=== PATIENT | male | born 1965 | race Two or more races ===

== ENCOUNTER 2016-11-15 10:37 | Inpatient (IN) | payer MEDICAID ==
[~2016-11-15] VITALS: Ht 170.2 cm; Wt 84.4 kg
--- NOTE | 2016-11-15 10:37 | NUR ---
JERAMY RA88 FROM [place]. PER EMS REPORT, PT WAS "SEIZING ON THE SIDEWALK." VERSED 5mg IM GIVEN BY [employer] STAGE TEACHER
--- NOTE | 2016-11-15 10:53 | NUR ---
PT TAKEN TO CT
[2016-11-15 10:54] LABS: EOSINOPHILS # (AUTO) 0.1 /CMM (0.0-0.7); MONOCYTES % (AUTO) 7.1 % (2.0-12.0)
[2016-11-15 10:56] LABS: BASOPHILS # (AUTO) 0.1 /CMM (0.0-0.2); BASOPHILS % (AUTO) 0.7 % (0.0-2.0); EOSINOPHILS % (AUTO) 0.8 % (0.0-6.0); HEMATOCRIT 47 % (39-51); HEMOGLOBIN 15.5 g/dL (13.5-17.5); LYMPHOCYTES # (AUTO) 1.8 /CMM (0.8-4.8); LYMPHOCYTES % (AUTO) 16.8 % (20.0-44.0); MEAN CORPUSCULAR HEMOGLOBIN 32 PG (26.0-33.0); MEAN CORPUSCULAR HGB CONC 33 g/dl (31.0-36.0); MEAN CORPUSCULAR VOLUME 97 fL (80-96); MONOCYTES # (AUTO) 0.8 /CMM (0.1-1.30); NEUTROPHILS # (AUTO) 8.1 /CMM (1.8-8.9); NEUTROPHILS % (AUTO) 74.6 % (43.0-81.0); PLATELET COUNT (AUTO) 216 /CMM (150-450); RDW COEFFICIENT OF VARIATION 12.5 (11.5-15.0); WHITE BLOOD COUNT (AUTO) 10.9 K/uL (4.3-11.0)
[2016-11-15 11:05] LABS: CALCIUM, SERUM 8.2 mg/dL (8.5-10.1); CARBON DIOXIDE 13 mmol/L (21-32); CHLORIDE 101 mmol/L (98-107); CREATININE 1.8 mg/dL (0.6-1.3); GLUCOSE 310 mg/dL (74-106); POTASSIUM 3.8 mmol/L (3.5-5.1); SODIUM SERUM 138 mmol/L (136-145); UREA NITROGEN, BLOOD 12 mg/dL (7-18)
[2016-11-15 11:19] LABS: ACETAMINOPHEN 0 ug/ml (10-30); ALANINE AMINOTRANSFERASE 19 U/L (12-78); ALBUMIN 3.7 g/dL (3.4-5.0); ALCOHOL, BLOOD < 3 mg/dL (0-0); ALKALINE PHOSPHATASE 93 U/L (46-116); ASPARTATE AMINOTRANSFERASE 21 U/L (15-37); BILIRUBIN,DIRECT 0.1 mg/dL (0.0-0.2); BILIRUBIN,TOTAL 0.4 mg/dL (0.2-1.0); TOTAL PROTEIN, SERUM 7.4 g/dL (6.4-8.2)
--- NOTE | 2016-11-15 12:42 | NUR ---
PAGED DR CEDILLO FOR PANEL ADMISSION
--- NOTE | 2016-11-15 12:52 | NUR ---
GAVE REPORT TO CHANDNI RN MAICOL 115-2 ADMITTING DX SEIZURE, ALTERED PROLONGED POST-ICTAL TRASNFER VIA ACLS PROTOCOL
--- NOTE | 2016-11-15 13:04 | NUR ---
URINE SAMPLE COLLECTED SENT TO LAB
[2016-11-15 13:45] LABS: BILIRUBIN,URINE Negative (NEGATIVE); BLOOD, URINE Trace-intact Ery/uL (NEGATIVE); COLOR,URINE Yellow (YELLOW); KETONES,URINE Negative (NEGATIVE); LEUKOCYTE ESTERASE ,URINE Trace (NEGATIVE); NITRITE, URINE Negative (NEGATIVE); PROTEIN,URINE Negative (NEGATIVE); UGLUCOSE Negative (NEGATIVE); UROBILINOGEN,URINE 0.2 EU/dL (0.2)
[2016-11-15 13:50] LABS: BACTERIA,URINE Few /HPF (None Seen); RBC,URINE 0-2 /HPF (0-2); SQUAMOUS EPITHELIAL CELL,UR Few /HPF (None Seen); WBC,URINE 0-2 /HPF (0-3)
[2016-11-15 13:51] LABS: APPEARANCE,URINE CLOUDY (CLEAR); URINE AMORPHOUS URATE Moderate /HPF (None Seen)
--- NOTE | 2016-11-15 15:10 | NUR ---
RN INITIAL NOTE PATIENT RECEIVED VIA GURNEY FROM ER. PATIENT IS AGITATED AND RESTLESS. RESPIRATIONS ARE EVEN SATING WELL ON 15L NON REBREATHER MASK. SKIN IS WARM, DIAPHORETIC. BILATERAL SOFT WRIST RESTRAINTS ORDER OBTAINED. IV SITE NOT ADEQUATE. MIDLINE ORDER OBTAINED. VIETNAMESE SPEAKING. COMBATIVE AND WILL NOT COOPERATE. TELEGRAPHIC TYPEWRITER MECHANIC NOT ABLE TO CALM PATIENT. SAFETY PRECAUTIONS IMPLEMENTED. BED IN LOCKED LOW POSITION WITH TWO SIDE RAILS UP. ORDER FOR SITTER PLACED. WILL CONTINUE TO MONITOR CLOSELY.
--- NOTE | 2016-11-15 15:26 | NUR ---
PATIENT AGITATED PULLING OUT LINES,GETTING OUT OF BED WITH UNSTEADY GAIT,UNABLE TO FOLLOW COMMANDS,PLACED ON BILATERAL SOFT WRIST RESTRAINTS FOR SAFETY.
[2016-11-15 16:00] VITALS: BP 125/77
[2016-11-15 17:00] VITALS: BP 125/77
--- NOTE | 2016-11-15 18:01 | NUR ---
patient very agitated despite bilateral soft wrist restraint and prn ativan,pulled iv, made aware with order for sitter until pt. calm down.
[2016-11-15 20:00] VITALS: BP 144/85
--- NOTE | 2016-11-15 20:00 | NUR ---
received pt from day shift, alert, restless, combative, SR, on non rebreather, sat well, restraints on, sitter at the bedside, v/s stable, no pain, ativan given for agitation, v/s stable, no pain, pt turns and repositions by himself.
[2016-11-16] VITALS: BP 127/75
[2016-11-16 04:00] VITALS: BP 126/72
--- NOTE | 2016-11-16 04:18 | NUR ---
pt resting in the bed, SR, on non rebreather, sat well, v/s stable, no pain, pt cleaned and changed.
[2016-11-16 06:49] LABS: BASOPHILS % (AUTO) 0.2 % (0.0-2.0); HEMATOCRIT 45 % (39-51); HEMOGLOBIN 15.3 g/dL (13.5-17.5); LYMPHOCYTES # (AUTO) 0.8 /CMM (0.8-4.8); LYMPHOCYTES % (AUTO) 9.1 % (20.0-44.0); MEAN CORPUSCULAR HEMOGLOBIN 33 PG (26.0-33.0); MEAN CORPUSCULAR HGB CONC 34 g/dl (31.0-36.0); MEAN CORPUSCULAR VOLUME 96 fL (80-96); MONOCYTES # (AUTO) 0.8 /CMM (0.1-1.30); MONOCYTES % (AUTO) 9.2 % (2.0-12.0); NEUTROPHILS # (AUTO) 7.1 /CMM (1.8-8.9); NEUTROPHILS % (AUTO) 81.5 % (43.0-81.0); PLATELET COUNT (AUTO) 150 /CMM (150-450); RDW COEFFICIENT OF VARIATION 13.1 (11.5-15.0); RED BLOOD CELL COUNT(AUTO) 4.66 MIL/uL (4.5-6.0); WHITE BLOOD COUNT (AUTO) 8.7 K/uL (4.3-11.0)
[2016-11-16 07:26] LABS: CALCIUM, SERUM 7.8 mg/dL (8.5-10.1); CREATININE 0.9 mg/dL (0.6-1.3); MAGNESIUM 2.2 mg/dL (1.8-2.4); PHOSPHORUS 2.9 mg/dL (2.5-4.9); POTASSIUM 3.3 mmol/L (3.5-5.1)
[2016-11-16 08:00] VITALS: BP 122/73
--- NOTE | 2016-11-16 14:50 | NUR ---
Social service consult requested by MAICOLJoshua Vernon for homelessness and alcohol/ drug use. Pt. is a 50 year old male who was admitted to [facility] for Seizures. Pt. was found seizing on the sidewalk and was brought in by ambulance to [facility]. SW met with pt. bedside. SW is familiar with pt. from previous admission. Pt. is unable to provide any information as he is still altered. Pt. tested positive for cannaboids and Benzo's. Pt is on restraints at this time and has a sitter bedside. SW to assess pt. when he is more alert and oriented. Pt. is [place] speaking.
[2016-11-16 16:00] VITALS: BP 115/70
[2016-11-16 20:00] VITALS: BP 142/70
--- NOTE | 2016-11-17 04:13 | NUR ---
MS-1/WHOLESALE DIAMOND BROKER PT EXTREMELY AGITATED. VIOLENTLY THRASHING AROUND IN BED. PT SNAPPED OFF MIDLINE EXTENSION. NEW EXTENSION AND DRESSING PLACED BY HERMAN RN. PT VIOLENTLY TRYING TO KICK NURSING AND EXTRUDER OPERATOR HELPER STAFF DURING AM CARE. PT SCREAMING OBSCENITIES AT THE TOP OF HIS LUNGS. FULL BED BATH GIVEN ALL LINENS CHANGED. PT REPOSITIONED AND MEDICATED FOR COMFORT. SITTER AT BEDSIDE FOR PT SAFETY. WILL CONTINUE TO MONITOR CLOSELY.
[2016-11-17 04:17] VITALS: BP 136/90
--- NOTE | 2016-11-17 07:00 | NUR ---
MS RN NOTE: RECEIVED PT AWAKE IN BED YELLING. PT IS PORTUGUESE SPEAKING, A&OX2, DENIES PAIN. ON O2 3LPM VIA NC WITH NO SOB NOTED. ROSA MIDLINE WITH NS RUNNING AT 50CC/HR. RESTRAINTS NOTED. FC DRAINING TO GRAVITY WITH DARK YELLOW URINE. BED LOW, LOCKED WITH CALL LIGHT WITHIN REACH. 1:1 SITTER AT BEDSIDE FOR SAFETY. WILL CONT TO MONITOR.
[2016-11-17 07:07] LABS: BASOPHILS % (AUTO) 0.2 % (0.0-2.0); HEMATOCRIT 47 % (39-51); HEMOGLOBIN 16.2 g/dL (13.5-17.5); LYMPHOCYTES # (AUTO) 0.7 /CMM (0.8-4.8); LYMPHOCYTES % (AUTO) 10.6 % (20.0-44.0); MEAN CORPUSCULAR HEMOGLOBIN 33 PG (26.0-33.0); MEAN CORPUSCULAR HGB CONC 34 g/dl (31.0-36.0); MEAN CORPUSCULAR VOLUME 95 fL (80-96); MONOCYTES # (AUTO) 0.7 /CMM (0.1-1.30); MONOCYTES % (AUTO) 9.8 % (2.0-12.0); NEUTROPHILS # (AUTO) 5.3 /CMM (1.8-8.9); NEUTROPHILS % (AUTO) 79.4 % (43.0-81.0); PLATELET COUNT (AUTO) 145 /CMM (150-450); RED BLOOD CELL COUNT(AUTO) 4.98 MIL/uL (4.5-6.0); WHITE BLOOD COUNT (AUTO) 6.7 K/uL (4.3-11.0)
[2016-11-17 07:33] LABS: CALCIUM, SERUM 8.1 mg/dL (8.5-10.1); CREATININE 0.8 mg/dL (0.6-1.3); MAGNESIUM 2.1 mg/dL (1.8-2.4); PHOSPHORUS 2.3 mg/dL (2.5-4.9); POTASSIUM 3.3 mmol/L (3.5-5.1)
[2016-11-17 08:00] VITALS: BP 141/92
--- NOTE | 2016-11-17 14:35 | NUR ---
ROSE and family preservation caseworker Zachery met with pt. bedside to assess pt. Pt. is much more alert and oriented today. Pt. is still on restraints due to trying to get out of bed. Pt. has a sitter bedside. Pt. is New Zealander and Czech speaking. [place]. [place] [facility] [facility] [place] [employer]. Pt. 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 Pt. denies drinking alcohol but smokes Marijuana. Pt. toxicology was positive for cannaboids and benzo's. [facility] [employer]. Pt. will need bus tokens at time of discharge. Pt's RN to request bus tokens from nursing hide house supervisor at time of discharge. ROSE offered pt. senior care placement and resources, however pt. declined.
--- NOTE | 2016-11-17 15:30 | NUR ---
MS RN NOTE: PT REMOVED MIDLINE. CHARGE NURSE NOTIFIED. 1:1 SITTER AT BEDSIDE FOR SAFETY.
--- NOTE | 2016-11-17 15:45 | NUR ---
MS RN NOTE: PATIENT REFUSED NEW IV LINE. 1:1 SITTER AT BEDSIDE.
--- NOTE | 2016-11-17 17:42 | NUR ---
EMTS NOTE: PATIENT ACCIDENTLY SPILLED 1700 MED SODIUM CITRATE AND CITRIC ACID ORAL SOLUTION 15ML. OTHER DOSE REMOVED FROM OMNICELL. Addendum: 11/17/16 at 1854 by JUNE PICKETT RN WRONG PATIENT. DISREGARD NOTE.
--- NOTE | 2016-11-17 19:06 | NUR ---
MS RN NOTE: NO ACUTE CHANGES DURING SHIFT. PT REMAINED A&OX2, FRENCH SPEAKING, DENIES PAIN. ON 3LPM O2 VIA NC WITH NO SOB NOTED. FC DRAINING TO GRAVITY WITH URINE WITH BLOOD CLOTS. BED LOW, LOCKED WITH CALL LIGHT WITHIN REACH. 1:1 SITTER AT BEDSIDE FOR SAFETY. ORDERS CARRIED OUT. WILL ENDORSE TO UNDERCUTTER NURSE FOR [facility].
--- NOTE | 2016-11-17 19:30 | NUR ---
RN OPENING NOTES: PATIENT ON BED AWAKE ALOX1-2 WITH PERIODS OF CONFUSION. NOTED TO BE RESTLESS IN BED, SITTER AT BEDSIDE AT THIS TIME WITH BILATERAL WRIST RESTRAINTS PATIENT TENDS TO BE COMBATIVE. ON O2 THERAPY ON 3LPM, TOLERATED WELL NOT IN APPARENT DISTRESS. NO IV ACCESS AT THIS TIME, TO INSERT PERIPHERAL LINE. FC INTACT. TO A CLOSED SYSTEM. NOTED WITH ORANGE COLORED URINE WITH NOTED BLOOD CLOTS. FLUSHED FRANCO CATHETER, TO MONITOR URINE OUTPUT. SAFETY MEASURES ENSURED. SEIZURE AND FALL PRECAUTION ENSURED AT ALL TIMES. CONTINUOUSLY MONITORED PATIENT.
[2016-11-17 20:00] VITALS: BP 145/82
--- NOTE | 2016-11-18 07:01 | NUR ---
RN CLOSING NOTES: PATIENT REMAINED IN BED NOT IN APPARENT DISTRESS. WITH PERIODS OF RESTLESSNESS AND ANXIETY AND SCREAMING, BUT WAS ABLE TO SLEEP ABOUT 5 HOURS THROUGHOUT SHIFT. REMAINS WITH BILATERAL WRIST RESTRAINTS. SKIN CARE RENDERED. FC INTACT TO GRAVITY UO MEASURED NOTED TO BE BLOOD TINGED STILL. CONTINUOUSLY MONITORED. TO ENDORSE TO AM SHIFT RN.
--- NOTE | 2016-11-18 07:58 | NUR ---
RN/MS OPENING NOTES RECEIVED PATIENT AWAKE RESTING IN BED COMFORTABLY WITH EYES OPEN. PATIENT IS AOX1-2 WITH REPORTED PERIODS OF CONFUSION. SEIZURE PRECAUTIONS IN PLACE. PATIENT APPEARS TO BE IN NO DISTRESS AT THIS TIME. DENIES SOB. HEATHER PAIN. PATIENT HAS RIGHT HAND 20G THAT HAS BEEN DISLODGED. WILL REINSERT. PATIENT HAS 1:1 SITTER AT THE BED SIDE. PATIENT HAS RESTRAINTS IN PLACE D/T PATIENT HAVING EPISODES OF BEING COMBATIVE. PATIENT ON 2LPM SATURATING ADEQUATELY. BED LOCKED IN THE LOWEST POSITION WITH SIDERAILS UPX2. CALL LIGHT WITHIN REACH. WILL CONTINUE TO MONITOR, ASSESS AND EDUCATE PATIENT THROUGHOUT SHIFT.
[2016-11-18 08:00] VITALS: BP 124/84
[2016-11-18 08:11] LABS: BASOPHILS % (AUTO) 0.1 % (0.0-2.0); EOSINOPHILS % (AUTO) 0.1 % (0.0-6.0); HEMATOCRIT 48 % (39-51); HEMOGLOBIN 16.2 g/dL (13.5-17.5); LYMPHOCYTES # (AUTO) 0.9 /CMM (0.8-4.8); LYMPHOCYTES % (AUTO) 15.3 % (20.0-44.0); MEAN CORPUSCULAR HEMOGLOBIN 32 PG (26.0-33.0); MEAN CORPUSCULAR HGB CONC 34 g/dl (31.0-36.0); MEAN CORPUSCULAR VOLUME 95 fL (80-96); MONOCYTES # (AUTO) 0.6 /CMM (0.1-1.30); MONOCYTES % (AUTO) 10.8 % (2.0-12.0); NEUTROPHILS # (AUTO) 4.3 /CMM (1.8-8.9); NEUTROPHILS % (AUTO) 73.7 % (43.0-81.0); PLATELET COUNT (AUTO) 146 /CMM (150-450); RDW COEFFICIENT OF VARIATION 13.4 (11.5-15.0); RED BLOOD CELL COUNT(AUTO) 5.07 MIL/uL (4.5-6.0); WHITE BLOOD COUNT (AUTO) 5.8 K/uL (4.3-11.0)
[2016-11-18 08:43] LABS: CALCIUM, SERUM 8.2 mg/dL (8.5-10.1); CREATININE 0.7 mg/dL (0.6-1.3); MAGNESIUM 2.1 mg/dL (1.8-2.4); PHOSPHORUS 3.4 mg/dL (2.5-4.9); POTASSIUM 3.7 mmol/L (3.5-5.1)
--- NOTE | 2016-11-18 09:00 | NUR ---
PATIENT RELEASED FROM RESTRAINTS ,WITH SITTER AT BEDSIDE,FREQUENT REORIENTATION RENDERED,SCREAMS,YELLS AT TIME IN AMERICAN,WITH AMERICAN SPEAKING SITTER,REASSURED PATIENT THAT HE IS BEING TAKEN CARE OF FALL RISK PRECAUTION OBSERVED.
--- NOTE | 2016-11-18 10:45 | NUR ---
RN/MS NOTES PATIENT HAS EPISODES OF SCREAMING BUT IS REORIENTED FREQUENTLY. PATIENT IS COMFORTABLE AT THIS TIME. NEW LINE PLACED ON THE RIGHT HAND. 22G. 3 ATTEMPTS. PATIENT TOLERATED WELL. IV PATENT AND INTACT. PROPER INTERVENTIONS PLACED TO PREVENT PATIENT FROM REMOVING IV. NO S/S OF INFILTRATION. NS RUNNING AT 50 MLS/HR AT THIS TIME.
--- NOTE | 2016-11-18 11:00 | NUR ---
COMPLETED RESTRAINT, PATIENT OFF FROM RESTRAINT ABLE TO RELAY WITH PASHTO SITTER,GAVE PHONE NUMBER [phone] ,ABLE TO CONTACT BROTHER MOMO VILLASEÑOR ,PER BROTHER PATIENT IS HOMELESS BUT HE CAN PICK HIM UP ONCE DISCHARGE.
--- NOTE | 2016-11-18 11:19 | NUR ---
FREQUENT REORIENTATION DONE IN ENGLISH BY SITTER AT BEDSIDE.
--- NOTE | 2016-11-18 11:20 | NUR ---
RN NOTES NEW IV PUT INTO PLACE. 3 ATTEMPTS. PATIENT TOLERATED WELL. IV ACCES ON THE RIGHT HAND 22 G. IV PATENT AND INTACT. NO S/ SOF INFILTRATION. WILL CONTINUE TO MONITOR. PATIENT FREQUENTLY REORIENTED BY SITTER.
--- NOTE | 2016-11-18 12:22 | NUR ---
RN NOTES PER CORPORATE SALES MANAGER AMY, GIVE LIBRIUM EARLY.
--- NOTE | 2016-11-18 13:35 | NUR ---
RN NOTES PATIENT COMPLAINING OF BEING BORED AND SHOUTING ASKING FOR BROTHER. REORIENTED BY 1:1 SITTER. WILL CONTINUE TO ORIENT AND EDUCATE PATIENT THROUGHOUT SHIFT.
--- NOTE | 2016-11-18 13:36 | NUR ---
PATIENT C/O BACK PAIN PRN PAIN MEDS GIVEN PO.
--- NOTE | 2016-11-18 14:03 | NUR ---
RN NOTES D/C JOAN PER DR. CEDILLO. PATIENT AMBULATED WELL WITH WALKER. WILL REASSESS AND HAVE PATIENT WALK AGAIN WITHOUT WALKER. WILL REPORT TO CHARGE NURSE IF PATIENT UNSTEADY.
--- NOTE | 2016-11-18 14:04 | NUR ---
RN NOTE FRANCO D/C'D. BALLOON DEFLATED AND 7 ML OF NS REMOVED. PATIENT TOLERATED WELL. FRANCO BAG CONTAINS 300 MLS OF ALFREDO URINE.
--- NOTE | 2016-11-18 15:04 | NUR ---
RN NOTES PATIENT TO BE DISCHARGED WITH NO MEDS PER DR. CEDILLO.
--- NOTE | 2016-11-18 15:05 | NUR ---
RN CLOSING NOTES PATIENT DISCHARGED IN STABLE CONDITION. PATIENT AMBULATES WITH STEADY GAIT. PATIENT WAS PROVIDED WITH EXIT CARE. PATIENT BELONGINGS CHECKED AND DOCUMENTED. ALL EDUCATION MATERIAL WAS PROVIDED. PATIENT SIGNED BELONGINGS LIST. PATIENT TO BE PICKED UP BY BROTHER. PATIENT REFUSED PLACEMENT IN SNF. ALL DOCUMENTATION SIGNED AND EDUCATION PROVIDED. WOUND PHOTOS TAKEN AND PLACED IN CHART. ALL NEEDS MET AND ALL MEDS GIVEN APPROPRIATE. WILL AWAIT FOR BROTHER TO PROFESSOR OF PATHOLOGY BROTHER.
--- NOTE | 2016-11-18 16:05 | NUR ---
RN NOTES PATIENT PICKED UP AND DISCHARGED TO BROTHER VANCE DUNNE. PATIENT WHEELCHAIRED TO [place] [facility].
== END 2016-11-18 16:26 | disposition home or self-care (01) | DRG 775 ==
LOC: ER 10:38 → TELE1 13:23 → TELE-TD 13:54 → MEDSG1 11-16 09:01
PROVIDERS: ADMIT Internal Medicine; ATTEND Internal Medicine
PROC: 05H633Z Insertion of Infusion Device into Left Subclavian Vein, Percutaneous Approach (ICD-10-PCS; principal; 2016-11-15)
DX: F10.239 Alcohol dependence with withdrawal, unspecified (principal); N17.0 Acute kidney failure with tubular necrosis; G40.509 Epileptic seizures related to external causes, not intractable, without status epilepticus; Y90.0 Blood alcohol level of less than 20 mg/100 ml; E66.9 Obesity, unspecified; Z68.29 Body mass index [BMI] 29.0-29.9, adult; Z59.0 Homelessness
CPT/HCPCS: 36415; 36569; 70450-TC; 71010-TC; 80048-TC; 80076-TC; 80305; 81000-TC; 82962-TC; 83735-TC; 84100-TC; 85025-TC; 87081-TC; A4606; G0480; J1630; J1815; J1953; J2060; J7030; Z7610

== ENCOUNTER 2017-04-11 14:44 | Inpatient (IN) | payer MEDICAID ==
[~2017-04-11] VITALS: Ht 165.1 cm; Wt 95.3 kg
[2017-04-11] VITALS: BP 103/55
--- NOTE | 2017-04-11 14:45 | NUR ---
BBRA FOUND FROM BUS STOP FOR WITNESSED SEIZURE ~UNKNOWN DURATION. PT GIVEN 5 VERSED IN FIELD IM. VSS. PT PLACED IN MONITOR AND GOWN. DR CARNES AT BEDSIDE FOR EVAL.
[2017-04-11] MEDS ORDERED: LORAZEPAM INJ 2 MG/ML VIAL ONE ×2 (14:54→17:06)
[2017-04-11] MEDS ORDERED: LORAZEPAM INJ 2 MG/ML VIAL IVP ONE ×2 (15:00→17:30)
[2017-04-11] MEDS ORDERED: phenytoin SODIUM IV 1,000 MG in IV NS 0.9% 100 ML IV ONE (15:00)
[2017-04-11 15:10] LABS: BASOPHILS # (AUTO) 0.3 /CMM (0.0-0.2); BASOPHILS % (AUTO) 1.5 % (0.0-2.0); EOSINOPHILS % (AUTO) 0.2 % (0.0-6.0); HEMATOCRIT 45 % (39-51); HEMOGLOBIN 15.5 g/dL (13.5-17.5); LYMPHOCYTES # (AUTO) 2.4 /CMM (0.8-4.8); LYMPHOCYTES % (AUTO) 10.3 % (20.0-44.0); MEAN CORPUSCULAR HEMOGLOBIN 33 PG (26.0-33.0); MEAN CORPUSCULAR HGB CONC 35 g/dl (31.0-36.0); MEAN CORPUSCULAR VOLUME 94 fL (80-96); MONOCYTES % (AUTO) 4.5 % (2.0-12.0); NEUTROPHILS # (AUTO) 19.3 /CMM (1.8-8.9); NEUTROPHILS % (AUTO) 83.5 % (43.0-81.0); PLATELET COUNT (AUTO) 235 /CMM (150-450); RED BLOOD CELL COUNT(AUTO) 4.74 MIL/uL (4.5-6.0)
[2017-04-11 15:22] LABS: CALCIUM, SERUM 9.3 mg/dL (8.5-10.1); CARBON DIOXIDE 16 mmol/L (21-32); CHLORIDE 98 mmol/L (98-107); CREATININE 1.4 mg/dL (0.6-1.3); GLUCOSE 206 mg/dL (74-106); SODIUM SERUM 133 mmol/L (136-145); UREA NITROGEN, BLOOD 12 mg/dL (7-18)
--- NOTE | 2017-04-11 15:25 | NUR ---
FRANCO CATH PLACED SENT URINE TO LAB
[2017-04-11 15:26] LABS: INR 1.05 (0.85-1.15)
[2017-04-11 15:30] LABS: ALANINE AMINOTRANSFERASE 26 U/L (12-78); ALBUMIN 3.7 g/dL (3.4-5.0); ALCOHOL, BLOOD < 3 mg/dL (0-0); ALKALINE PHOSPHATASE 92 U/L (46-116); ASPARTATE AMINOTRANSFERASE 19 U/L (15-37); BILIRUBIN,DIRECT 0.1 mg/dL (0.0-0.2); BILIRUBIN,TOTAL 0.6 mg/dL (0.2-1.0); TOTAL PROTEIN, SERUM 8.2 g/dL (6.4-8.2)
--- NOTE | 2017-04-11 15:42 | NUR ---
PT TO CT
[2017-04-11] MEDS ORDERED: ACETAMINOPHEN 325 MG TABLET PO PRN (16:30)
[2017-04-11] MEDS ORDERED: DEXTROSE 50%-WATER 50 ML DISP.SYRIN IV PRN (16:30)
[2017-04-11] MEDS ORDERED: MAGNESIUM HYDROXIDE 30 ML UDC PO PRN (16:30)
[2017-04-11] MEDS ORDERED: ONDANSETRON HCL/PF 4 MG/2 ML VIAL IVP PRN (16:30)
[2017-04-11] MEDS ORDERED: Z GUARD REMEDY 2 OZ OINT TP PRN (16:30)
[2017-04-11] MEDS ORDERED: MAG HYDROX/AL HYDROX/SIMETH 30 ML UDC PO PRN (16:30)
--- NOTE | 2017-04-11 16:43 | NUR ---
MAICOL 115-1
--- NOTE | 2017-04-11 16:55 | NUR ---
REPORT GIVEN TO CHANDNI PEREZ FOR [facility]
[2017-04-11] MEDS ORDERED: IV NS 0.9% 1,000 ML BAG IV ONE (17:30)
--- NOTE | 2017-04-11 17:45 | NUR ---
RN OPENING NOTE PATIENT RECEIVED IN BED. THRASHING AND COMBATIVE. REPORT RECEIVED FROM MICA AMADOR NURSE. PATIENT PRIMARILY GAMBIAN SPEAKING. CONFUSED. SINUS RHYTHM ON TELE MONITOR. RESPIRATIONS ARE EVEN AND UNLABORED. HAS MASK WITH 10L O2. WILL TITRATE DOWN AND CHECK 02, SHORTLY. SKIN IS DIAPHORETIC. SAFETY PRECAUTIONS IN PLACE. BED IN LOCKED, LOW POSITION WITH TWO SIDE RAILS UP. WILL CONTINUE TO MONITOR.
[2017-04-11] MEDS: IV NS 0.9% 1,000 ML IV PRN (18:22)
[2017-04-11] MEDS: BLOOD SUGAR DIAGNOSTIC 1 EACH STRIP IN SCH ×2 (18:23→20:09)
[2017-04-11] MEDS: Folic acid 1 MG in IV D5W 50 ML IV SCH (19:11)
--- NOTE | 2017-04-11 19:30 | NUR ---
RN TD OPENING NOTE PATIENT RECEIVED IN BED, SEDATED ATIVAN, WITH MASK @ 5L/PM WELL TERRELL. SOFT BILAT WRIST RESTRAIN IN PLACE FOR SAFETY, SKIN INTACT. PATIENT SINUS RHYTHM ON TELE MONITOR. RESPIRATIONS ARE EVEN AND UNLABORED. WILL TITRATE DOWN AND CHECK 02, SHORTLY. SKIN IS DIAPHORETIC. SAFETY PRECAUTIONS IN PLACE. BED IN LOCKED, LOW POSITION WITH TWO SIDE RAILS UP. WILL CONTINUE TO MONITOR.
[2017-04-11] MEDS: ENOXAPARIN SODIUM 40 MG/0.4 ML DISP.SYRIN SQ SCH (19:47)
[2017-04-11] MEDS: Thiamine 100 MG in IV D5W 50 ML IV SCH (19:49)
[2017-04-11] MEDS: PIPERACILLIN /TAZOBACTAM 3.375 G in IV D5W 50 ML IV SCH (19:50)
[2017-04-11 20:00] VITALS: BP 105/65
[2017-04-11] MEDS ORDERED: PIPERACILLIN /TAZOBACTAM 4.5 G in IV D5W 50 ML IV SCH (21:00)
[2017-04-11] MEDS: LORAZEPAM INJ 2 MG/ML VIAL IV PRN (21:06)
[2017-04-11] MEDS: HYDROCODONE/APAP 5/325MG 1 EACH TABLET PO PRN (22:25)
[2017-04-11] MEDS: phenytoin SODIUM IV 500 MG in IV NS 0.9% 50 ML IV SCH (22:31)
--- NOTE | 2017-04-11 22:46 | NUR ---
MAICOL RN NOTES NOTED PATIENT ATTEMPTING TO GET OUT OF BED, COMBATIVE, SCREAMING. ATTEMPTED TO RE-ORIENT PATIENT, PATIENT STILL UNCOOPERATIVE. PAGED DR. DURANT, WAITING FOR ORDERS.
--- NOTE | 2017-04-11 23:30 | NUR ---
INFORMED DR. DURANT UNABLE TO GIVE IV MEDICATIONS, PATIENT HARD STICK. OK FOR MIDLINE. NURSING CRULLER MAKER INFORMED.
[2017-04-11] MEDS ORDERED: HALOPERIDOL LACTATE INJ 5 MG/ML VIAL ONE (23:46)
[2017-04-12] VITALS: BP_SYST 116; BP_SYST 122; BP_DIAS 70; BP_DIAS 71
[2017-04-12] MEDS ORDERED: HALOPERIDOL DECANOATE IM 100 MG/ML AMPUL IM ONE
--- NOTE | 2017-04-12 00:11 | NUR ---
MAICOL RN NOTES PATIENT RESTLESS, AGGRESSIVE, IV LINE PULLED OUT, PRESSURE DRESSING PLACED. UNABLE TO REASON WITH PATIENT. [address] NEW LINE, PATIENT COMBATIVE, SITTING UP FROM BED, ATTEMPT FAILED. INFORMED NURSING SUPERVISOR STAVE CUTTING FOR MIDLINE ORDER FOR PATIENT. WILL SEE IF PICC LINE NURSE WILL COME. CALL DR. DURANT AND GAVE UPDATE ON PATIENT, WITH ORDERS FOR ONE TIME HALDOL 1MG IM AND FOR PSYCH EVAL. NOTED AND CARRIED OUT. PRIMARY NURSE INFORMED. WILL CONTINUE TO MONITOR.
[2017-04-12] MEDS: BLOOD SUGAR DIAGNOSTIC 1 EACH STRIP IN SCH ×6 (00:29→21:10)
[2017-04-12] MEDS: PIPERACILLIN /TAZOBACTAM 3.375 G in IV D5W 50 ML IV SCH ×2 (00:30→05:04)
--- NOTE | 2017-04-12 00:30 | NUR ---
ERROR MED ORDER FOR HALDOL. ORDER WAS HALDOL LACTATE, NOT HALDOL DECONATE. HALDOL LACTATE 1MG IM WAS GIVEN.
[2017-04-12] MEDS: ZOLPIDEM TARTRATE 5 MG TABLET PO PRN ×2 (00:43→19:38)
[2017-04-12] MEDS: LORAZEPAM INJ 2 MG/ML VIAL IV PRN ×6 (02:53→22:10)
[2017-04-12 04:00] VITALS: BP 115/61
--- NOTE | 2017-04-12 06:59 | NUR ---
MAICOL RN CLOSING NOTES PATIENT RESTLESS, AGGRESSIVE, IV LINE PULLED OUT, PRESSURE DRESSING PLACED. UNABLE TO REASON WITH PATIENT. [address] NEW LINE, PATIENT COMBATIVE, SITTING UP FROM BED, ATTEMPT FAILED. INFORMED NURSING DELI BAKERY CLERK FOR MIDLINE ORDER FOR PATIENT. WILL SEE IF PICC LINE NURSE WILL COME. CALL DR. DURANT AND GAVE UPDATE ON PATIENT, WITH ORDERS FOR ONE TIME HALDOL 1MG IM AND FOR PSYCH EVAL. NOTED AND CARRIED OUT. PRIMARY NURSE INFORMED. WILL CONTINUE TO MONITOR.
[2017-04-12] MEDS ORDERED: HALOPERIDOL LACTATE INJ 5 MG/ML VIAL IM ONE (07:30)
[2017-04-12 07:47] LABS: BASOPHILS % (AUTO) 0.1 % (0.0-2.0); HEMATOCRIT 42 % (39-51); HEMOGLOBIN 14.9 g/dL (13.5-17.5); LYMPHOCYTES # (AUTO) 1.9 /CMM (0.8-4.8); LYMPHOCYTES % (AUTO) 11.1 % (20.0-44.0); MEAN CORPUSCULAR HEMOGLOBIN 34 PG (26.0-33.0); MEAN CORPUSCULAR HGB CONC 35 g/dl (31.0-36.0); MEAN CORPUSCULAR VOLUME 96 fL (80-96); NEUTROPHILS # (AUTO) 14.2 /CMM (1.8-8.9); NEUTROPHILS % (AUTO) 82.8 % (43.0-81.0); PLATELET COUNT (AUTO) 176 /CMM (150-450); RDW COEFFICIENT OF VARIATION 13.9 (11.5-15.0); RED BLOOD CELL COUNT(AUTO) 4.39 MIL/uL (4.5-6.0); WHITE BLOOD COUNT (AUTO) 17.2 K/uL (4.3-11.0)
[2017-04-12 08:00] VITALS: BP 122/71
[2017-04-12 08:15] LABS: INR 1.03 (0.87-1.13)
[2017-04-12 10:15] LABS: ALBUMIN 3.7 g/dL (3.4-5.0); BILIRUBIN,DIRECT 0.2 mg/dL (0.0-0.2); BILIRUBIN,TOTAL 1.4 mg/dL (0.2-1.0); CALCIUM, SERUM 8.7 mg/dL (8.5-10.1); MAGNESIUM 2.2 mg/dL (1.8-2.4); PHOSPHORUS 2.5 mg/dL (2.5-4.9); POTASSIUM 4.1 mmol/L (3.5-5.1); TOTAL PROTEIN, SERUM 8.1 g/dL (6.4-8.2)
[2017-04-12 10:41] LABS: THYROID STIMULATING HORMONE 0.56 uIU/mL (0.358-3.74)
[2017-04-12] MEDS ORDERED: PIPERACILLIN /TAZOBACTAM 3.375 G in IV NS 0.9% 50 ML IV SCH (11:02)
[2017-04-12 12:00] VITALS: BP 135/78
[2017-04-12] MEDS: phenytoin SODIUM IV 500 MG in IV NS 0.9% 50 ML IV SCH ×2 (12:36→21:11)
[2017-04-12] MEDS: PIPERACILLIN /TAZOBACTAM 3.375 G in IV NS 0.9% 50 ML IV SCH ×2 (12:39→19:16)
[2017-04-12] MEDS: IV NS 0.9% 1,000 ML IV PRN (12:39)
--- NOTE | 2017-04-12 13:33 | NUR ---
Social service consult requested by Dr. Booth for homelessness and alcohol use. Pt. is a 51 year old male who was admitted to [facility] for Seizures. Pt. was found on the street and was brought in my ambulance. SW is familiar with pt. from previous admissions. SW is unable to assess pt. due to pt. yelling and screaming. SW to re-assess pt. when he is calm and cooperative. Pt. is Surinamese speaking.
[2017-04-12 16:00] VITALS: BP 150/74
[2017-04-12] MEDS: QUETIAPINE FUMARATE 25 MG TABLET PO PRN (16:39)
[2017-04-12] MEDS: Folic acid 1 MG in IV D5W 50 ML IV SCH (16:58)
[2017-04-12] MEDS: Thiamine 100 MG in IV D5W 50 ML IV SCH (17:37)
[2017-04-12] MEDS: HYDROCODONE/APAP 5/325MG 1 EACH TABLET PO PRN (19:37)
--- NOTE | 2017-04-12 19:49 | NUR ---
MAICOL RN INITIAL NOTES PATIENT RESTLESS, AGGRESSIVE, IV LINE PULLED OUT, PRESSURE DRESSING PLACED. UNABLE TO REASON WITH PATIENT, PATIENT COMBATIVE, SITTING UP FROM BED, ATTEMPT FAILED. WITH SITTER AT THIS TIME, SAFETY MEASURES IN PLACE, WILL CONT TO MONITOR.
[2017-04-12 20:00] VITALS: BP 122/71
[2017-04-12] MEDS: ENOXAPARIN SODIUM 40 MG/0.4 ML DISP.SYRIN SQ SCH (21:16)
[2017-04-13] VITALS: BP_SYST 122; BP_SYST 128; BP_DIAS 71; BP_DIAS 75
[2017-04-13] MEDS: PIPERACILLIN /TAZOBACTAM 3.375 G in IV NS 0.9% 50 ML IV SCH ×3 (00:58→12:00)
[2017-04-13] MEDS: BLOOD SUGAR DIAGNOSTIC 1 EACH STRIP IN SCH ×6 (00:58→21:49)
[2017-04-13] MEDS: LORAZEPAM INJ 2 MG/ML VIAL IV PRN ×2 (01:23→04:37)
[2017-04-13 04:00] VITALS: BP 137/76
--- NOTE | 2017-04-13 06:35 | NUR ---
MAICOL RN CLOSING NOTES PT MORE ALERT AND COOPERATIVE THIS AM GIVEN BEDBATH WITH SITTER DC WRIST RESTRAIN , LW 22 G PULLED OUT ACCIDENTALLY PT HARD STICK, AWAITING FOR MIDLINE INSERTION IN AM. WILL ENDORSE TO AM SHIFT NURSE TO F/U, SAFETY MEASURES CONT PER PROTOCOL.
[2017-04-13 07:33] LABS: BASOPHILS % (AUTO) 0.2 % (0.0-2.0); EOSINOPHILS % (AUTO) 0.1 % (0.0-6.0); HEMATOCRIT 44 % (39-51); HEMOGLOBIN 15.1 g/dL (13.5-17.5); LYMPHOCYTES # (AUTO) 1.6 /CMM (0.8-4.8); LYMPHOCYTES % (AUTO) 11.2 % (20.0-44.0); MEAN CORPUSCULAR HEMOGLOBIN 33 PG (26.0-33.0); MEAN CORPUSCULAR HGB CONC 34 g/dl (31.0-36.0); MEAN CORPUSCULAR VOLUME 95 fL (80-96); MONOCYTES # (AUTO) 0.7 /CMM (0.1-1.30); NEUTROPHILS # (AUTO) 11.5 /CMM (1.8-8.9); NEUTROPHILS % (AUTO) 83.5 % (43.0-81.0); PLATELET COUNT (AUTO) 196 /CMM (150-450); RED BLOOD CELL COUNT(AUTO) 4.63 MIL/uL (4.5-6.0); WHITE BLOOD COUNT (AUTO) 13.8 K/uL (4.3-11.0)
--- NOTE | 2017-04-13 07:52 | NUR ---
RN NOTE:(INITIAL) PATIENT RECEIVED ALERT AWAKE ORIENTED. RESPONSIVE TO VERBAL & TACTILE STIMULI. ON ROOM AIR, NO BREATHING DIFFICULTY NOTED AT THIS TIME. SITTER 1:1 FOR SAFETY. NO PERIODS OF AGITATION NOTED. SAFETY MEASURES OBSERVED. CALL LIGHT WITHIN REACH. FRANCO CATHETER INTACT, DRAINING WELL WITH GRAVITY. WAITING FOR RN R/T MIDLINE INSERTION. WILL CONTINUE TO MONITOR.
[2017-04-13 07:59] LABS: CALCIUM, SERUM 8.8 mg/dL (8.5-10.1); CREATININE 0.8 mg/dL (0.6-1.3); MAGNESIUM 2.2 mg/dL (1.8-2.4); POTASSIUM 3.8 mmol/L (3.5-5.1)
[2017-04-13 08:00] VITALS: BP 117/77
[2017-04-13] MEDS: phenytoin SODIUM IV 500 MG in IV NS 0.9% 50 ML IV SCH (09:00)
[2017-04-13] MEDS: INSULIN REGULAR, HUMAN 100 UNIT/ML 3 ML VIAL SQ PRN ×3 (09:14→22:07)
--- NOTE | 2017-04-13 09:44 | NUR ---
RN NOTES: NO IV LINE AVAILABLE AT THIS TIME. CALLED NURSING MIDDLE SCHOOL BASEBALL COACH TO FOLLOW UP FOR MIDLINE INSERTION.
--- NOTE | 2017-04-13 10:48 | NUR ---
RN NOTE: DILANTIN IV IS NOT ADMINISTERED DUE TO NON AVAILABILITY OF IV LINE.
[2017-04-13] MEDS: QUETIAPINE FUMARATE 25 MG TABLET PO PRN ×3 (11:29→23:47)
[2017-04-13] MEDS: FOLIC ACID 1 MG TABLET PO SCH (11:56)
[2017-04-13] MEDS: THIAMINE HCL 100 MG TABLET PO SCH (11:56)
[2017-04-13 12:05] VITALS: BP 107/69
[2017-04-13 16:00] VITALS: BP 121/72
[2017-04-13] MEDS ORDERED: LEVOFLOXACIN (500MG) 500 MG TABLET PO SCH (16:00)
[2017-04-13] MEDS: LORAZEPAM 1 MG TABLET PO PRN ×3 (16:02→21:52)
--- NOTE | 2017-04-13 18:00 | NUR ---
SPOKE WITH PATIENT 'S BROTHER SHARATH VILLASEÑOR TEL.NO. , GIVEN BY THE PATIENT. CHARLEEN SAID WILL COME TOMORROW TO VISIT HIM.
--- NOTE | 2017-04-13 18:18 | NUR ---
RN NOTE: 1120: PATIENT NOTED VERBALLY ABUSIVE TOWARDS STAFF & AGITATED, TRIED TO GET UP FROM BED. SECURITY CALLED, HELPED PATIENT TO USE RESTROOM. STILL AGITATED. OFFER SEROQUEL PO MEDICATION. GIVEN AT 1129. NOTED EFFECTIVE. 1310:SPOKE WITH DR. CEDILLO REGARDING NO IV LINE, CHANGED IV DILANTIN & ANTIBIOTIC TO PO. OK TO CHANGE DILANTIN IV TO PO 500MG PO BID. & LEVAQUIN 500MG PO QD, STOP ZOSYN. ORDERS NOTED & CARRIED OUT. CALLED NURSING CODING AND REIMBURSEMENT SPECIALIST, REGARDING FOLLOW UP MIDLINE INSERTION. 1515: PATIENT NOTED AGITATED & AGGRESSIVE MULTIPLE TIMES. ALL CODE MANZO X2. CALLED & LEFT MESSAGE FOR DR. CEDILLO & DR. PAUL, SPOKE WITH CRISIS TEAM. PER CRISIS TEAM , DR. PAUL OR [facility] DOCTOR HAS TO GIVE ORDERS. NO RESPONSE FROM MD. 1530: CALLED DR. CEDILLO AGAIN RECEIVED ORDER TO CHANGE ATIVAN IV TO PO . GIVEN AT 1534. 1630: PATIENT STILL AGITATED. SAFETY MEASURES OBSERVED. SITTER 1:1. FOUND MEDICATION TABLET BOTTLE IN PATIENT'S BELONGINGS. , SEND TO PHARMACY. PATIENT REFUSED TO SIGN HOME MEDICATION. WILL CONTINUE TO MONITOR. CALL LIGHT WITHIN REACH.
--- NOTE | 2017-04-13 19:10 | NUR ---
RN NOTE: PATIENT NOTED VERY AGITATED, VERBALLY ABUSIVE. CALLED/PAGED DR. CEDILLO, WAITING FOR RESPONSE.
[2017-04-13 20:00] VITALS: BP 130/77
--- NOTE | 2017-04-13 21:30 | NUR ---
SPOKE TO ISABELLA GUERRA HERE TO INSERT MIDLINE, PT MEDS CHANGED TO PO ATB, ONLY IV FLUIDS. SUGGESTED THAT IF PT ON PO TERRELL WELL, THEN D/C IV FLUIDS AND F/C AND NO NEED FOR MIDLINE. PT WILL BE MONITORED FOR URINARY RETENTION.
[2017-04-13] MEDS: AMOX/CLAVULANATE 875 MG TABLET PO SCH (21:49)
[2017-04-13] MEDS: PHENYTOIN EXTENDED RELEASE 100 MG CAPSULE PO SCH (21:50)
[2017-04-13] MEDS: ZOLPIDEM TARTRATE 5 MG TABLET PO PRN (21:52)
[2017-04-13] MEDS: ENOXAPARIN SODIUM 40 MG/0.4 ML DISP.SYRIN SQ SCH (21:57)
[2017-04-13] MEDS: HYDROCODONE/APAP 5/325MG 1 EACH TABLET PO PRN (23:48)
[2017-04-14] VITALS: BP 130/77
--- NOTE | 2017-04-14 00:09 | NUR ---
PT AGITATED ABLE TO REMOVE BILATERAL WRIST RESTRAINS WITH SITTER IN THE , CALLED SECURITY AND ANUPAM ERGONOMICS ENGINEER, NOTIFIED HER THAT PT REMOVED RESTRAINS AND PROMISES TO BEHAVE AND HE WANTS TO LEAVE AMA, PT NOT ON HOLD. FRONT LOAD TRASH TRUCK DRIVER OK TO REMOVE AND MONITOR CLOSELY.
[2017-04-14] MEDS: BLOOD SUGAR DIAGNOSTIC 1 EACH STRIP IN SCH ×3 (00:55→09:00)
--- NOTE | 2017-04-14 00:56 | NUR ---
0100 BS PT REFUSED "SUGGESTING THAT ITS TO MUCH" OFFERED X 3, RISK AND BENEFIT EXPLAINED. WILL TRY TO CHECK AT 0500, BS STABLE WITH THE LAST VALUE OBTAINED.
[2017-04-14 04:00] VITALS: BP 130/77
--- NOTE | 2017-04-14 06:08 | NUR ---
CHRISTINA RN CLOSING NOTES ENDORSED PT TO AM SHIFT CALM WITH SITTER, NO RESTRAINT, MORE ALERT, FOLLOWS COMMAND, WITH NO EPISODE OF SCREAMING OR AGGRESSION, WANTS TO LEAVE AMA IN AM. WILL ENDORSE FOR THE AM SHIFT TO F/U WITH
--- NOTE | 2017-04-14 06:34 | NUR ---
S/P F/C REMOVAL BLADER RETENTION MONITORED, NO SIGN OF RETENTION VS STABLE , AFEBRILE, WILL ENDORSE TO AM SHIFT TO MONITOR.
--- NOTE | 2017-04-14 07:00 | NUR ---
RN NOTES RECEIVED PT ON BED, A/Ox2, FOLLOWS SIMPLE COMMAND, NO DISTRESS NOTED, HEATHER ANY PAIN , RESPIRATION EVEN AND UNLABORED, NO SOB NOTED, SITTER AT THE BEDSIDE FOR SAFETY PRECAUTIONS, SR UP x3, CALL LIGHTS WITHIN EASY REACH, BED LOCKED AND IN LOWEST POSITION , CONTINUE TO MONITOR .
[2017-04-14 07:32] LABS: BASOPHILS % (AUTO) 0.3 % (0.0-2.0); EOSINOPHILS # (AUTO) 0.1 /CMM (0.0-0.7); EOSINOPHILS % (AUTO) 1.2 % (0.0-6.0); HEMATOCRIT 45 % (39-51); HEMOGLOBIN 15.7 g/dL (13.5-17.5); LYMPHOCYTES # (AUTO) 2.1 /CMM (0.8-4.8); LYMPHOCYTES % (AUTO) 25.6 % (20.0-44.0); MEAN CORPUSCULAR HEMOGLOBIN 33 PG (26.0-33.0); MEAN CORPUSCULAR HGB CONC 35 g/dl (31.0-36.0); MEAN CORPUSCULAR VOLUME 96 fL (80-96); MONOCYTES # (AUTO) 0.7 /CMM (0.1-1.30); MONOCYTES % (AUTO) 8.6 % (2.0-12.0); NEUTROPHILS # (AUTO) 5.2 /CMM (1.8-8.9); NEUTROPHILS % (AUTO) 64.3 % (43.0-81.0); PLATELET COUNT (AUTO) 218 /CMM (150-450); RDW COEFFICIENT OF VARIATION 13.7 (11.5-15.0); RED BLOOD CELL COUNT(AUTO) 4.72 MIL/uL (4.5-6.0); WHITE BLOOD COUNT (AUTO) 8.1 K/uL (4.3-11.0)
[2017-04-14 07:46] LABS: CALCIUM, SERUM 8.2 mg/dL (8.5-10.1); CREATININE 0.6 mg/dL (0.6-1.3); MAGNESIUM 2.2 mg/dL (1.8-2.4); PHOSPHORUS 3.6 mg/dL (2.5-4.9); POTASSIUM 3.7 mmol/L (3.5-5.1)
[2017-04-14] MEDS: LORAZEPAM 1 MG TABLET PO PRN (07:52)
[2017-04-14] MEDS: QUETIAPINE FUMARATE 25 MG TABLET PO PRN (07:53)
[2017-04-14 08:00] VITALS: BP 128/78
[2017-04-14] MEDS: FOLIC ACID 1 MG TABLET PO SCH (08:03)
[2017-04-14] MEDS: PHENYTOIN EXTENDED RELEASE 100 MG CAPSULE PO SCH (08:03)
[2017-04-14] MEDS: AMOX/CLAVULANATE 875 MG TABLET PO SCH (08:03)
[2017-04-14] MEDS: THIAMINE HCL 100 MG TABLET PO SCH (08:03)
--- NOTE | 2017-04-14 10:00 | NUR ---
RN NOTES FOUND PT IN THE ROOM WITH SEAFOOD TECHNOLOGY SPECIALIST AND A CIGARETTE IN HIS HAND , AND STATED WANTS TO SMOKE IN THE ROOM , SECURITY AND CHARGE NURSE NOTIFIED, PT ADVISED THAT HE CANT SMOKE IN THE HOSPITAL . PT VERY AGITATED AND ANGERY AT THIS TIME . PT GOT OUT OF HIS ROOM AND WALKED AROUND THE [address] AND NURSING STATION , STATED WANTS TO LEAVE AMA. PT ADVISED HOW IMPORTANT IT IS TO FOLLOW THE PLAN OF CARE AND MD'S ORDER, PT STILL REFUSED TO STAY, PT SIGNED THE AMA AND BELONGINGS FORMS AND STILL WANTS TO LEAVE AMA . SECURITY AT THE BEDSIDE AT THIS TIME .CONTINUE TO MONITOR .
--- NOTE | 2017-04-14 10:26 | NUR ---
RN NOTES PT LEFT THE FLOOR AMA , AMBULATORY ACCOMPANIED BY SECURITY AND STAFF MEMBER TO MAIN ENTRANCE .
== END 2017-04-14 10:30 | disposition left against medical advice (07) | DRG 770 ==
LOC: ER 14:46 → TELE-TD 16:54 → MEDSG1 04-14 10:23
PROVIDERS: ADMIT Internal Medicine; ATTEND Internal Medicine
PROC: 05H533Z Insertion of Infusion Device into Right Subclavian Vein, Percutaneous Approach (ICD-10-PCS; principal; 2017-04-12)
DX: F10.239 Alcohol dependence with withdrawal, unspecified (principal); N17.0 Acute kidney failure with tubular necrosis; G93.41 Metabolic encephalopathy; J15.9 Unspecified bacterial pneumonia; E87.2 Acidosis; R56.9 Unspecified convulsions; E86.0 Dehydration; E87.1 Hypo-osmolality and hyponatremia; Z59.0 Homelessness; J32.0 Chronic maxillary sinusitis; T51.0X1A Toxic effect of ethanol, accidental (unintentional), initial encounter; Y90.0 Blood alcohol level of less than 20 mg/100 ml; F29 Unspecified psychosis not due to a substance or known physiological condition
CPT/HCPCS: 36415; 36569; 70450-TC; 71045-TC; 80048-TC; 80076-TC; 80185-TC; 80305; 82746; 82962-TC; 83540-TC; 83735-TC; 84100-TC; 84443-TC; 85025-TC; 85610-TC; 85730-TC; 87081-TC; A4216; A4606; G0480; J1165; J1630; J1631; J1650; J1815; J2060; J2543; J3411; J3490; J7030; J7060; Z7610